=== PATIENT | male | born 1985 | race Caucasian/White ===

== ENCOUNTER 2020-09-04 10:46 | Emergency (ER) | payer BC ==
[2020-09-04] MEDS ORDERED: Ondansetron 4 MG/2 ML SDV IVPUSH ONE (11:10)
[2020-09-04] MEDS ORDERED: Sodium Chloride 0.9% 10 ML Syringe FLUSH PRN (11:12)
[2020-09-04] MEDS ORDERED: Sodium Chloride 0.9% 1,000 ML IV SCH (11:15)
--- NOTE | 2020-09-04 11:31 | EDM.PDOC ---
ED HPI GENERAL MEDICAL PROBLEM - General Chief Complaint: Abdominal Pain Stated Complaint: UPPER ABDOMINAL PAIN/POSSIBLE GALLBLADDER ISSUE Time Seen by Provider: 09/04/20 11:05 Source of Information: Reports: Patient, RN Notes Reviewed History Limitations: Reports: No Limitations - History of Present Illness INITIAL COMMENTS - FREE TEXT/NARRATIVE: Patient is a 35-year-old male who presents to the ED for his right upper quadrant/epigastric abdominal pain. Patient notes that this started this morning, shortly after he woke up. He notes this is an intermittent pain, it feels like someone punched him in the gut. He states he feels nauseous with this, but has not vomited. He has not had any fever, or diarrhea, cough or shortness of breath, but he has had some chills. Patient has had this pain before, when he has had issues with his gallstones. He notes that he has been having ongoing issues with this for roughly 6 months. He did eat a breakfast burrito at around 7 AM this morning and some coffee. He notes that the pain is much better when he is not moving around, it does not radiate anywhere. He did try some Tylenol and this did not help. Primary care provider is Dr. Vázquez. He has had an appendectomy, but still retains his gallbladder. Patient is a less than half pack per day smoker, and been doing this for roughly 3 months. He denies any other past medical issues. Right Upper Abdomen Pain Score (Numeric/FACES): 8 - Related Data Allergies Allergy/AdvReac Type Severity Reaction Status Date / Time No Known Allergies Allergy Verified 09/04/20 10:54 Home Meds: Home Meds Amphetamine/Dextroamphetamine [Adderall] 20 mg PO DAILY 09/04/20 [History] FLUoxetine HCl [Prozac] 60 mg PO DAILY 09/04/20 [History] Hydrocodone/Acetaminophen [Hydrocodone-Acetamin 5-325 mg] 1 each PO Q6H PRN #12 tablet 09/04/20 [Rx] Ondansetron [Zofran ODT] 4 mg PO Q8H PRN #15 tab.dis 09/04/20 [Rx] QUEtiapine [SEROquel] 50 mg PO BEDTIME 09/04/20 [History] buPROPion [Wellbutrin] 150 mg PO DAILY 09/04/20 [History] Past Medical History Gastrointestinal History: Reports: Cholelithiasis Social & Family History - Tobacco Use Tobacco Use Status *Q: Current Every Day Tobacco User Years of Tobacco use: 1 Packs/Tins Daily: 1 - Caffeine Use Caffeine Use: Reports: Coffee, Energy Drinks, Soda - Alcohol Use Days Per Week of Alcohol Use: 7 Number of Drinks Per Day: 1 Total Drinks Per Week: 7 - Recreational Drug Use Recreational Drug Use: No ED ROS GENERAL - Review of Systems Review Of Systems: Comprehensive ROS is negative, except as noted in HPI. ED EXAM, GI/ABD - Physical Exam Exam: See Below Exam Limited By: No Limitations General Appearance: Alert, WD/WN, No Apparent Distress Respiratory/Chest: No Respiratory Distress, Lungs Clear, Normal Breath Sounds, No Accessory Muscle Use, Chest Non-Tender, Respiratory Distress Cardiovascular: Normal Peripheral Pulses, Regular Rate, Rhythm, No Edema GI/Abdominal Exam: Normal Bowel Sounds, Soft, No Distention, No Mass, Tender (Calles sign positive) Extremities: Normal Inspection, Normal Capillary Refill Neurological: Alert, Oriented, Normal Cognition, No Motor/Sensory Deficits Psychiatric: Normal Affect, Normal Mood Skin Exam: Warm, Dry, Intact, Normal Color, No Rash Course - Vital Signs Last Recorded V/S: Last Vital Signs Temp 96.8 F L 09/04/20 10:52 Pulse 77 09/04/20 10:52 Resp 17 09/04/20 10:52 BP 160/95 H 09/04/20 10:52 Pulse Ox 99 09/04/20 10:52 - Orders/Labs/Meds Orders: Active Orders 24 hr Category Date Time Status Peripheral IV Care [RC] . DIRECTED Care 09/04/20 11:12 Ordered CBC WITH MANUAL DIFF [HEME] Stat Lab 09/04/20 11:10 Ordered UA W/MICROSCOPIC [URIN] Stat Lab 09/04/20 11:10 Ordered Sodium Chloride 0.9% [Normal Saline] 1,000 ml Med 09/04/20 11:15 Ordered IV ASDIRECTED Sodium Chloride 0.9% [Saline Flush] Med 09/04/20 11:12 Ordered 10 ml FLUSH ASDIRECTED PRN Peripheral IV Insertion Adult [OM.PC] Routine Oth 09/04/20 11:12 Ordered Medication Orders Sodium Chloride (Normal Saline) 1,000 mls @ 999 mls/hr IV ASDIRECTED MOI Last Admin: 09/04/20 11:30 Dose: 999 mls/hr Documented by: JOHN Sodium Chloride (Sodium Chloride 0.9% 10 Ml Syringe) 10 ml FLUSH ASDIRECTED PRN PRN Reason: Keep Vein Open Last Admin: 09/04/20 11:30 Dose: 10 ml Documented by: JOHN Labs: Laboratory Tests 09/04/20 09/04/20 Range/Units 11:25 11:25 WBC 12.08 H (4.23-9.07) K/mm3 RBC 5.50 (4.63-6.08) M/mm3 Hgb 15.9 (13.7-17.5) gm/dl Hct 47.0 (40.1-51.0) % MCV 85.5 (79.0-92.2) fl MCH 28.9 (25.7-32.2) pg MCHC 33.8 (32.2-35.5) g/dl RDW Std Deviation 45.7 H (35.1-43.9) fL Plt Count 273 (163-337) K/mm3 MPV 9.4 (9.4-12.3) fl Sodium 140 (136-145) mEq/L Potassium 3.7 (3.5-5.1) mEq/L Chloride 103 (98-107) mEq/L Carbon Dioxide 25 (21-32) mEq/L Anion Gap 15.7 H (5-15) BUN 13 (7-18) mg/dL Creatinine 1.2 (0.7-1.3) mg/dL Est Cr Clr Drug Dosing 97.99 mL/min Estimated GFR (MDRD) > 60 (>60) mL/min BUN/Creatinine Ratio 10.8 L (14-18) Glucose 121 H (74-106) mg/dL Calcium 8.1 L (8.5-10.1) mg/dL Total Bilirubin 0.3 (0.2-1.0) mg/dL GGT 21 (15-85) U/L AST 15 (15-37) U/L ALT 27 (16-63) U/L Alkaline Phosphatase 65 (46-116) U/L Total Protein 6.9 (6.4-8.2) g/dl Albumin 3.6 (3.4-5.0) g/dl Globulin 3.3 gm/dL Albumin/Globulin Ratio 1.1 (1-2) Lipase 196 (73-393) U/L Meds: Medications Generic Name Dose Route Start Last Admin Trade Name Dariel PRN Reason Stop Dose Admin Sodium Chloride 1,000 mls @ 999 mls/hr 09/04/20 11:15 09/04/20 11:30 Normal Saline IV 999 mls/hr ASDIRECTED MOI Administration Sodium Chloride 10 ml 09/04/20 11:12 09/04/20 11:30 Sodium Chloride 0.9% 10 Ml Syringe FLUSH 10 ml ASDIRECTED PRN Administration Keep Vein Open Discontinued Medications Generic Name Dose Route Start Last Admin Trade Name Freq PRN Reason Stop Dose Admin Ondansetron HCl 4 mg 09/04/20 11:10 09/04/20 11:29 Ondansetron 4 Mg/2 Ml Sdv IVPUSH 09/04/20 11:11 4 mg ONETIME ONE Administration - Re-Assessments/Exams Free Text/Narrative Re-Assessment/Exam: 09/04/20 11:31 Patient presents to the ER for his upper abdominal pain. We will go ahead and get some labs, get IV established, give him some nausea meds and fluids, and obtain an abdomen ultrasound, as he has an established history of gallstones, this does appear to be biliary colic in nature at this time. 09/04/20 12:39 The patient's labs and ultrasound have returned, CBC demonstrates a mildly elevated white count at 12, the patient's metabolic panel is essentially unremarkable. Ultrasound does demonstrate multiple gallstones seen within the gallbladder but no wall thickening or biliary ductal dilatation is noted. This does confirm that he does indeed have biliary colic, and he should have a surgical referral at this time. We will refer him to Dr. Cristino Cardenas for removal of the gallbladder. Departure - Departure Time of Disposition: 12:42 Disposition: Home, Self-Care 01 Condition: Good Clinical Impression: Cholelithiasis Qualifiers: Cholelithiasis location: gallbladder Cholecystitis presence: without cholecystitis Biliary obstruction: without biliary obstruction Qualified Code (s): K80.20 - Calculus of gallbladder without cholecystitis without obstruction - Discharge Information *PRESCRIPTION DRUG MONITORING PROGRAM REVIEWED*: Yes *COPY OF PRESCRIPTION DRUG MONITORING REPORT IN PATIENT JAMIE: No Instructions: Cholelithiasis, [id number] Referrals: Lucas Williamson MD [Primary Care Provider] - Forms: ED Department Discharge Additional Instructions: You were evaluated in the ER today for your ongoing gallbladder issues. Ultrasound demonstrated that you do have quite a few gallstones within your gallbladder however laboratory evaluation suggest you are not suffering from cholecystitis at this time. Highly recommend you follow-up with general surgeon of choice, for consultation and possible removal of your gallbladder. Our clinic number [phone], Dr. Cristino Cardenas would be able to help you with this. [facility] number [phone], Dr. Morocho or Dr. Chavez are the general surgeons on staff at [facility]. You should call, sometime this afternoon, or early tomorrow morning to schedule an appointment again to discuss possible gallbladder removal. You were given a prescription for a strong pain medication, hydrocodone/acetaminophen 5/325 mg, please take 1 tab every 6 hours as needed for pain not relieved by Tylenol or ibuprofen alone. Please note this medication does contain Tylenol in it, so do not take more than 4000 mg in a 24- hour time span. These medications can be addictive, so please take as few as possible to achieve adequate pain control. These meds can also be quite constipating, recommend that you increase your oral fluid intake and take a stool softener like MiraLAX while taking these medications. Do not drive while taking this medication. You were given a prescription for Zofran, you will need to take 1 tablet in your tongue every 8 hours as needed for ongoing nausea. This medication was electronically sent to the [facility] located near [facility]. Please try to stick to as low fat of a diet as possible, as this usually makes gallbladder disease worse. Please do not hesitate to return the ER if your symptoms change or worsen. Sepsis Event Note (ED) - Evaluation Sepsis Screening Result: No Definite Risk - Focused Exam Vital Signs: Vital Signs Temp Pulse Resp BP Pulse Ox 09/04/20 10:52 96.8 F L 77 17 160/95 H 99 - My Orders Last 24 Hours: My Active Orders 09/04/20 11:10 CBC WITH MANUAL DIFF [HEME] Stat UA W/MICROSCOPIC [URIN] Stat 09/04/20 11:12 Peripheral IV Care [RC] . DIRECTED Sodium Chloride 0.9% [Saline Flush] 10 ml FLUSH ASDIRECTED PRN Peripheral IV Insertion Adult [OM.PC] Routine 09/04/20 11:15 Sodium Chloride 0.9% [Normal Saline] 1,000 ml IV ASDIRECTED - Assessment/Plan Last 24 Hours: My Active Orders 09/04/20 11:10 CBC WITH MANUAL DIFF [HEME] Stat UA W/MICROSCOPIC [URIN] Stat 09/04/20 11:12 Peripheral IV Care [RC] . DIRECTED Sodium Chloride 0.9% [Saline Flush] 10 ml FLUSH ASDIRECTED PRN Peripheral IV Insertion Adult [OM.PC] Routine 09/04/20 11:15 Sodium Chloride 0.9% [Normal Saline] 1,000 ml IV ASDIRECTED
--- NOTE | 2020-09-04 12:26 | US ---
Limited abdominal ultrasound: Multiple real-time images of the upper right abdomen are obtained. Comparison: No prior abdominal imaging is available. Findings: Multiple gallstones are seen within the gallbladder. Largest gallstone measures up to 2.0 cm. No gallbladder wall thickening or biliary duct dilatation is appreciated. Liver shows no focal abnormality. Right kidney shows no hydronephrosis or mass. Right kidney has a length of 11.3 cm. Proximal aorta not optimally seen. Inferior vena cava is patent. Main portal vein shows normal hepatopedal flow. Pancreas is not completely seen. Visualized portions of the pancreas show no discrete abnormality. Impression: 1. Multiple gallstones are seen within the gallbladder. No gallbladder wall thickening or biliary duct dilatation is seen. 2. Poorly seen proximal aorta and pancreas. 3. No additional abnormality is appreciated. Diagnostic code #3
== END 2020-09-04 13:00 | disposition home or self-care (01) ==
LOC: JD.ED 10:46
DX: K80.20 Calculus of gallbladder without cholecystitis without obstruction (principal); Z72.0 Tobacco use; Z79.899 Other long term (current) drug therapy
CPT/HCPCS: 36415; 76705; 80053; 82977; 83690; 85007; 85027; 96374; 99284; J2405; J7030

== ENCOUNTER 2020-09-18 07:10 | Day surgery (SDC) | payer BC ==
[~2020-09-18 07:10] MED LIST: Lidocaine 1%/Sod Bicarbonate in NS 8.4% 1 ML Syringe IDERM PRN; Sodium Chloride 0.9% 10 ML Syringe FLUSH PRN
[2020-09-18] MEDS ORDERED: Bupivacaine 0.5%/EPINEPHrine 1:200,000 50 ML MDV ONE (07:15)
[2020-09-18] MEDS: Lactated Ringers 1,000 ML IV SCH ×2 (07:20→09:59)
[2020-09-18] MEDS ORDERED: Propofol 200 MG/20 ML SDV ONE (07:22)
[2020-09-18] MEDS ORDERED: Midazolam 1 MG/ML 2 ML SDV ONE (07:23)
[2020-09-18] MEDS ORDERED: fentaNYL 250 MCG/5 ML SDV ONE (07:23)
[2020-09-18] MEDS ORDERED: Lidocaine 1% 4 ML ONE ×2 (07:23→07:24)
[2020-09-18] MEDS ORDERED: Rocuronium 50 MG/5 ML Vial ONE ×3 (07:27→08:25)
[2020-09-18] MEDS ORDERED: ceFAZolin 1 GM Vial ONE (07:30)
--- NOTE | 2020-09-18 07:48 | PCM.PREANE ---
Preanesthetic Assessment - Procedure Proposed Procedure: lap cholestectomy - Anesthesia/Transfusion/Family Hx Anesthesia History: Prior Anesthesia Without Reaction Type of Anesthesia Reaction: Other (see below) (one report of agression after GA ) Family History of Anesthesia Reaction: No Transfusion History: No Prior Transfusion(s) Intubation History: Unknown - Review of Systems General: No Symptoms Pulmonary: No Symptoms Cardiovascular: No Symptoms Gastrointestinal: No Symptoms Neurological: No Symptoms Other: Reports: Depression, Anxiety - Physical Assessment NPO Status Date: 09/17/20 NPO Status Time: 21:00 Height: 1.88 m Weight: 107 kg ASA Class: 2 Mental Status: Alert & Oriented x3 Dentition: Reports: Normal Dentition (mckenzie ) Thyro-Mental Finger Breadths: 3 Mouth Opening Finger Breadths: 5 ROM/Head Extension: Full Lungs: Clear to Auscultation, Normal Respiratory Effort Cardiovascular: Regular Rate, Regular Rhythm - Allergies Allergies/Adverse Reactions: Allergies Allergy/AdvReac Type Severity Reaction Status Date / Time No Known Allergies Allergy Verified 09/16/20 14:28 - Blood Blood Available: No - Anesthesia Plan Pre-Op Medication Ordered: None - Acknowledgements Anesthesia Type Planned: General Anesthesia Pt an Appropriate Candidate for the Planned Anesthesia: Yes Alternatives and Risks of Anesthesia Discussed w Pt/Guardian: Yes Pt/Guardian Understands and Agrees with Anesthesia Plan: Yes PreAnesthesia Questionnaire HEENT History: Reports: Impaired Vision, Other (See Below) Other HEENT History: wears glasses Cardiovascular History: Reports: None Respiratory History: Reports: None Gastrointestinal History: Reports: Cholelithiasis Genitourinary History: Reports: None MANAGER USER INTERFACE History: Reports: None Musculoskeletal History: Reports: None Neurological History: Reports: None Psychiatric History: Reports: Depression Endocrine/Metabolic History: Reports: None Hematologic History: Reports: None Immunologic History: Reports: None Oncologic (Cancer) History: Reports: None Dermatologic History: Reports: None - Infectious Disease History Infectious Disease History: Reports: None - Past Surgical History Head Surgeries/Procedures: Reports: None HEENT Surgical History: Reports: None Cardiovascular Surgical History: Reports: None Respiratory Surgical History: Reports: None GI Surgical History: Reports: Appendectomy, EGD Female Surgical History: Reports: None Male Surgical History: Reports: None Endocrine Surgical History: Reports: None Neurological Surgical History: Reports: None Musculoskeletal Surgical History: Reports: Shoulder Surgery, Other (See Below) Other Musculoskeletal Surgeries/Procedures:: shoulder and wrist sx Oncologic Surgical History: Reports: None Dermatological Surgical History: Reports: None - SUBSTANCE USE Tobacco Use Status *Q: Current Every Day Tobacco User Days Per Week of Alcohol Use: 4 Number of Drinks Per Day: 2 Total Drinks Per Week: 8 Recreational Drug Use History: No - HOME MEDS Home Medications: Home Meds Amphetamine/Dextroamphetamine [Adderall] 20 mg PO DAILY 09/04/20 [History] FLUoxetine HCl [Prozac] 60 mg PO DAILY 09/04/20 [History] QUEtiapine [SEROquel] 50 mg PO BEDTIME 09/04/20 [History] buPROPion HCL [Wellbutrin SR] 150 mg PO DAILY 09/16/20 [History] - CURRENT (IN HOUSE) MEDS Current Meds: Current Medications Lactated Ringer's (Ringers, Lactated) 1,000 mls @ 125 mls/hr IV ASDIRECTED MOI Stop: 09/18/20 23:00 Lidocaine/Sodium Bicarbonate (Lidocaine 1%/Sod Bicarbonate In Ns 8.4% 1 Ml Syringe) 0.25 ml IDERM ONETIME PRN PRN Reason: Prior to IV Start Stop: 09/18/20 18:00 Sodium Chloride (Sodium Chloride 0.9% 10 Ml Syringe) 10 ml FLUSH ASDIRECTED PRN PRN Reason: Keep Vein Open Stop: 09/18/20 18:00 Discontinued Medications Bupivacaine HCl/Epinephrine Bitart (Bupivacaine 0.5%/Epinephrine 1:200,000 50 Ml Mdv) Confirm Administered Dose 50 ml .ROUTE .STK-MED ONE Stop: 09/18/20 07:16 Cefazolin Sodium (Cefazolin 1 Gm Vial) Confirm Administered Dose 2 gm .ROUTE .STK-MED ONE Stop: 09/18/20 07:31 Fentanyl (Fentanyl 250 Mcg/5 Ml Sdv) Confirm Administered Dose 250 mcg .ROUTE .STK-MED ONE Stop: 09/18/20 07:24 Lidocaine HCl (Xylocaine-Mpf 1%) Confirm Administered Dose 4 mls @ as directed .ROUTE .STK-MED ONE Stop: 09/18/20 07:24 Lidocaine HCl (Xylocaine-Mpf 1%) Confirm Administered Dose 4 mls @ as directed .ROUTE .STK-MED ONE Stop: 09/18/20 07:25 Midazolam HCl (Midazolam 1 Mg/Ml 2 Ml Sdv) Confirm Administered Dose 2 mg .ROUTE .STK-MED ONE Stop: 09/18/20 07:24 Propofol (Propofol 200 Mg/20 Ml Sdv) Confirm Administered Dose 200 mg .ROUTE .STK-MED ONE Stop: 09/18/20 07:23 Rocuronium [place] (Rocuronium 50 Mg/5 Ml Vial) Confirm Administered Dose 50 mg .ROUTE .STK-MED ONE Stop: 09/18/20 07:28 Rocuronium [place] (Rocuronium 50 Mg/5 Ml Vial) Confirm Administered Dose 50 mg .ROUTE .STK-MED ONE Stop: 09/18/20 07:29
[2020-09-18] MEDS ORDERED: HYDROmorphone 0.5 MG/0.5 ML Syringe IVPUSH PRN (07:49)
[2020-09-18] MEDS ORDERED: Ondansetron 4 MG/2 ML SDV IVPUSH PRN (07:49)
[2020-09-18] MEDS ORDERED: Ketorolac 30 MG/ML SDV ONE (08:13)
[2020-09-18] MEDS ORDERED: Dexamethasone 4 MG/ML 5 ML MDV ONE (08:13)
[2020-09-18] MEDS ORDERED: Ondansetron 4 MG/2 ML SDV ONE (08:13)
[2020-09-18] MEDS ORDERED: Scopolamine 1.5 MG Transdermal Patch TRDERM ONE (08:30)
[2020-09-18] MEDS ORDERED: HYDROmorphone 0.5 MG/0.5 ML Syringe ONE ×2 (08:42→08:43)
[2020-09-18] MEDS ORDERED: Ketamine 500 mg/10 ML MDV ONE (08:44)
--- NOTE | 2020-09-18 09:22 | PCM.PRNOTE ---
- Free Text/Narrative Note: Date: 09/18/2020 Operation: laparoscopic cholecystectomy Indication: symptomatic cholelithiasis Surgeon: Cristino Cardenas MD Findings: mild chronic cholecystitis with large gallstones. Critical view of safety established. Detailed Report: The patient was taken to the operating room and placed in supine position. T imeout was performed and general endotracheal anesthesia was initiated. Abdominal hair was clipped, and the abdomen was prepped and draped in usual sterile fashion. A Veress needle was placed the left upper quadrant in order to establish pneumoperitoneum. Air was aspirated at the umbilicus with needle and syringe. Due to a small umbilical hernia at this site, the first trocar introduced was at the right lateral abdomen after aspirating air at this site. A 5 mm bladed trocar was placed, and 5 mm 30 degree laparoscope was inserted into the abdomen and contents inspected. Under laparoscopic visualization, a 5 mm bladed trocar was placed at the umbilicus through the small umbilical hernia. An additional right upper quadrant 5 mm port was placed, and the fundus of the gallbladder was grasped and retracted cephalad. A 12 mm bladed trocar was placed in the subxiphoid area. The infundibulum was retracted laterally and dissection commenced. Visceral peritoneum of the gallbladder was taken off at the level of the infundibulum. The cystic structures were carefully dissected and skeletonized. A critical view of safety was obtained. During skeletonization of the cystic duct, a small arterial branch was divided using hook electrocautery but there was a small amount of continued hemorrhage after division. This was controlled with short burst of directed monopolar energy. Hemoclips were placed on the cystic duct and artery prior to transection. 2 clips were left on the stay side of the cystic duct. The gallbladder was from the liver using hook monopolar energy. Once the gallbladder was free, the specimen was placed in Endo Catch bag and removed through the subxiphoid site. Large gallstones were noted. The right edge of the liver had some minor hemorrhage after removal of the gallbladder, this was controlled with directed monopolar energy. The dissection field was irrigated and suctioned dry. Hemostasis was satisfactory. The subxiphoid port was removed and this incision was closed at the level of fascia with a [id number] Vicryl suture using a laparoscopic suture passer. Next, the small umbilical hernia site was closed at the level of fascia with 0 Vicryl stitch using laparoscopic suture passer. Ports were removed and pneumoperitoneum was released. All incisions were closed at the level of skin with subcuticular Vicryl suture and dressed with Dermabond. A total of 35 cc 0.5% Marcaine with epinephrine was used for local anesthetic throughout the case. The patient tolerated the procedure well.
--- NOTE | 2020-09-18 09:29 | PCM.POSTAN ---
POST ANESTHESIA ASSESSMENT - MENTAL STATUS Mental Status: Alert - VITAL SIGNS Vital Signs: Last Vital Signs Temp 36.5 C 09/18/20 09:19 Pulse 83 09/18/20 09:19 Resp 17 09/18/20 09:19 BP 172/86 H 09/18/20 09:19 Pulse Ox 94 L 09/18/20 09:19 - RESPIRATORY Respiratory Status: Respiratory Rate WNL, Airway Patent, O2 Saturation Stable, Supplemental Oxygen - CARDIOVASCULAR CV Status: Pulse Rate WNL, Elevated Blood Pressure - GASTROINTESTINAL GI Status: No Symptoms - PAIN Pain Score: 0 - POST OP HYDRATION Hydration Status: Adequate & Stable
[2020-09-18] MEDS: fentaNYL 100 MCG/2 ML SDV IVPUSH PRN ×3 (09:45→10:26)
[2020-09-18] MEDS ORDERED: Famotidine 20 MG/2 ML SDV IVPUSH ONE (09:55)
[2020-09-18] MEDS ORDERED: oxyCODONE 5 MG Tab PO PRN (10:19)
[2020-09-18] MEDS ORDERED: Labetalol 100 MG/20 ML MDV IVPUSH ONE (10:35)
--- NOTE | 2020-09-18 11:12 | PCM48HPAN ---
Post Anesthesia Note - EVALUATION WITHIN 48HRS OF ANESTHETIC Vital Signs in Normal Range: Yes Patient Participated in Evaluation: Yes Respiratory Function Stable: Yes (o2 sats 92% upon assessment, encouraged coughing and deep breathing ) Airway Patent: Yes Cardiovascular Function Stable: Yes Hydration Status Stable: Yes Pain Control Satisfactory: Yes Nausea and Vomiting Control Satisfactory: Yes Mental Status Recovered: Yes Vital Signs: Last Vital Signs Temp 36.6 C 09/18/20 11:03 Pulse 67 09/18/20 11:03 Resp 15 09/18/20 11:03 BP 143/87 H 09/18/20 11:03 Pulse Ox 93 L 09/18/20 11:03
== END 2020-09-18 12:30 | disposition home or self-care (01) ==
LOC: JD.SDS 07:10
PROVIDERS: ATTEND Surgery
DX: K80.10 Calculus of gallbladder with chronic cholecystitis without obstruction (principal); F17.210 Nicotine dependence, cigarettes, uncomplicated
CPT/HCPCS: 47562; A9270; J0690; J1100; J1170; J1885; J2250; J2405; J2704; J2710; J3010; J3490; J7120; 00790